=== PATIENT | female | born 2005 | race Caucasian/White ===

== ENCOUNTER 2024-08-01 09:19 | Emergency (ER) | payer SELFPAY ==
[~2024-08-01] VITALS: Ht 170.2 cm; Wt 64.0 kg
[2024-08-01 09:32] VITALS: O2SAT 98
[2024-08-01] MEDS ORDERED: OCUFLX EACHEYE (10:21)
[2024-08-01 10:29] VITALS: BP 121/63; PULSE 72; RESP 16; TEMP 36.83628; O2SAT 98
== END 2024-08-01 10:29 | disposition home or self-care (01) ==
LOC: ER 09:19
DX: H10.33 Unspecified acute conjunctivitis, bilateral (principal)
CPT/HCPCS: 99283